=== PATIENT | female | born 1945 | race Two or more races ===

== ENCOUNTER 2024-05-23 10:05 | Emergency (ER) | payer OTHER ==
[~2024-05-23] VITALS: Ht 154.9 cm; Wt 79.4 kg
[2024-05-23] MEDS ORDERED: BENICAR40 MG (10:30)
[2024-05-23] MEDS ORDERED: METFORMIN HCL500 MG (10:30)
[2024-05-23] MEDS ORDERED: NASAL MIST126 ML (10:31)
[2024-05-23] MEDS ORDERED: SYNTHROID88 MCG (10:31)
[2024-05-23] MEDS ORDERED: KETOROLAC TROMETHAMINE 60 MG VIAL IM STA (11:26)
[2024-05-23] MEDS ORDERED: DEXAMETHASONE SODIUM PHOSPHATE 4 MG/ML VIAL IM STA (11:27)
[2024-05-23] MEDS ORDERED: OxyCODONE HCL/APAP UD (PERCOCET) PO STA (11:28)
== END 2024-05-23 14:03 | disposition home or self-care (01) ==
LOC: ER 10:08
DX: M25.561 Pain in right knee (principal); M54.2 Cervicalgia; I10 Essential (primary) hypertension
CPT/HCPCS: 73560; 96372; 99283; J1100; J1885

== ENCOUNTER 2024-07-06 08:02 | Inpatient (IN) | payer OTHER ==
[~2024-07-06] VITALS: Ht 152.4 cm; Wt 79.4 kg
[~2024-07-06 08:02] MED LIST: BENICAR40 MG; METFORMIN HCL500 MG; NASAL MIST126 ML; SYNTHROID88 MCG
[2024-07-06] MEDS ORDERED: CRESTOR40 MG (08:41)
[2024-07-06 08:46] VITALS: BP 147/87
[2024-07-06 08:46] LABS: PH,URINE 6.5 (5.0-8.0); URINE APPEARANCE Clear; URINE BILIRRUBIN Negative (NEGATIVE); URINE BLOOD Negative; URINE COLOR Yellow; URINE GLUCOSE Negative (NEGATIVE); URINE KETONE Negative (NEGATIVE); URINE LEUKOCYTE Trace; URINE NITRATE Negative; URINE PROTEIN Negative (NEGATIVE); URINE UROBILINOGEN 0.2 E.U./dl
[2024-07-06 08:50] LABS: HEMATOCRIT 42.1 % (36.0-45.00); HEMOGLOBIN 14.3 g/dL (12.0-15.00); MEAN CELL VOLUME 93.2 fL (80.00-100.00); MEAN CORPUSCULAR HEMOGLOBIN 31.6 pg (27.00-32.0); MEAN CORPUSCULAR HGB CONC 33.9 g/dl (32.0-36.0); PLATELET COUNT 192 K/uL (150-450); RED BLOOD COUNT 4.52 M/uL (4.00-6.00); RED CELL DISTRIBUTION WIDTH 13.2 % (11.5-14.5)
[2024-07-06 08:51] LABS: URINE BACTERIA 708.3 uL (0.0-1933); URINE EPITHELIAL CELLS 39.1 uL (0.0-38.8); URINE RBC 10.1 uL (0.0-20.8); URINE WBC 5.8 uL (0.0-23.2)
[2024-07-06 09:04] LABS: COVID-19 AG NEGATIVE (NEGATIVE)
[2024-07-06 09:14] LABS: PARTIAL THROMBOPLASTIN TIME 25.3 SECONDS (22.0-34.0); PROTHROMBIN TIME 10.9 SECONDS (9.0-11.5)
[2024-07-06 10:00] LABS: ALBUMIN 3.7 gm/dL (3.4-5.0); BILIRUBIN TOTAL 1.19 mg/dL (0.3-1.2); CALCIUM 9.6 mg/dL (8.5-10.1); CHOL HDL RATIO 3.5 (0-5.0); CREATININE SERUM 0.6 mg/dL (0.55-1.02); GFR 96.68; GLOBULINA 3.4 G/DL (2.4-3.5); POTASSIUM 4.13 mEq/L (3.5-5.1); TOTAL PROTEIN 7.1 gm/dL (6.4-8.2)
[2024-07-06 10:04] LABS: RH POSITIVE
[2024-07-12] MEDS ORDERED: POVIDONE-IODINE 118 ML BOTT TOP ONE (13:21)
[2024-07-12] MEDS ORDERED: VANCOMYCIN HCL 1,000 MG VIAL ONE (13:22)
[2024-07-12] MEDS ORDERED: BUPIVACAINE HCL/Mpf 0.5% 10ML VIAL ONE (13:22)
[2024-07-12] MEDS ORDERED: LIDOCAINE HCL 1%/EPINEPHRINE 20ML VIAL IJ ONE (13:22)
[2024-07-12] MEDS ORDERED: TRANEXAMIC ACID 100MG/1ML (1000MG) AMPUL IV ONE (13:22)
[2024-07-12] MEDS ORDERED: CEFAZOLIN SODIUM 1,000 MG VIAL ONE ×2 (13:57→17:24)
[2024-07-12] MEDS ORDERED: KETOROLAC TROMETHAMINE 60 MG VIAL IM ONE (15:05)
[2024-07-12] MEDS ORDERED: OxyCODONE HCL 5 MG TABLET (ROXICODONE) PO PRN (15:45)
[2024-07-12] MEDS ORDERED: MORPHINE SULFATE 4 MG/ML CARTRIDGE IV PRN (15:45)
[2024-07-12] MEDS ORDERED: ONDANSETRON HCL 2 MG/ML VIAL IV PRN (15:45)
[2024-07-12] MEDS ORDERED: SODIUM CHLORIDE 0.45 % 1,000 ML IV SCH (15:45)
[2024-07-12] MEDS ORDERED: CEFAZOLIN SODIUM 1,000 MG VIAL IV SCH (17:00)
[2024-07-12] MEDS ORDERED: GABAPENTIN 300 MG CAPSULE PO SCH (17:00)
[2024-07-12] MEDS ORDERED: MORPHINE SULFATE 4 MG/ML VIAL IV ONE ×3 (17:15→17:45)
[2024-07-12] MEDS ORDERED: ACETAMINOPHEN 500 MG GEL..CAP PO SCH (18:00)
[2024-07-12] MEDS ORDERED: DEXTROSE 50 % IN WATER 0.5 G/ML DISP.SYRIN IV PRN (21:15)
[2024-07-12] MEDS ORDERED: INSULIN LISPRO 1,000 UNIT/10 ML UNITS SUBCUTANEO PRN (21:15)
[2024-07-13 00:59] VITALS: BP 129/77; O2SAT 98
[2024-07-13] MEDS ORDERED: LEVOTHYROXINE SODIUM 88 MCG TABLET PO SCH (06:00)
[2024-07-13] MEDS ORDERED: DUI500 PO (07:18)
[2024-07-13] MEDS ORDERED: PERCOCET 5-3251 EACH PO (07:18)
[2024-07-13] MEDS ORDERED: ELIQUIS2.5 MG PO (07:18)
[2024-07-13 08:00] VITALS: BP 139/83; O2SAT 95
[2024-07-13] MEDS ORDERED: APIXABAN 2.5 MG TABLET PO SCH (09:00)
[2024-07-13] MEDS ORDERED: SENNOSIDES 1 TAB TABLET PO SCH (09:00)
[2024-07-13] MEDS ORDERED: PATIENTS OWN MEDICATION (MEDICAMENTO EN PISO) PO SCH (09:00)
[2024-07-13 10:37] LABS: HEMATOCRIT 38.5 % (36.0-45.00); MEAN CELL VOLUME 94.4 fL (80.00-100.00); MEAN CORPUSCULAR HEMOGLOBIN 31.9 pg (27.00-32.0); MEAN CORPUSCULAR HGB CONC 33.8 g/dl (32.0-36.0); PLATELET COUNT 156 K/uL (150-450); RED BLOOD COUNT 4.08 M/uL (4.00-6.00); RED CELL DISTRIBUTION WIDTH 13.4 % (11.5-14.5)
[2024-07-13 10:55] LABS: MANUAL PLATELET COUNT 168
[2024-07-13 11:54] LABS: COVID-19 AG NEGATIVE (NEGATIVE)
[2024-07-13 16:10] VITALS: BP 150/64; O2SAT 97
[2024-07-13 16:25] VITALS: BP 137/85; O2SAT 97
[2024-07-13] MEDS ORDERED: SOD FERRIC GLUC COMPLX/SUCROSE 62.5 MG/5 ML AMPUL IV SCH (17:00)
[2024-07-13] MEDS ORDERED: Cyanocobalamin/Mecobalamin 1 TAB.SL SL SCH (17:00)
[2024-07-13] MEDS ORDERED: VITAMIN B COMPLEX 1 EACH PO SCH (17:00)
[2024-07-13] MEDS ORDERED: IPRATROPIUM/ALBUTEROL SULFATE 3 ML AMPUL.NEB IH SCH (17:00)
[2024-07-14 01:24] VITALS: BP 138/74; O2SAT 98
[2024-07-14 06:32] LABS: HEMATOCRIT 33.2 % (36.0-45.00); HEMOGLOBIN 11.5 g/dL (12.0-15.00); MEAN CELL VOLUME 92.9 fL (80.00-100.00); MEAN CORPUSCULAR HEMOGLOBIN 32.1 pg (27.00-32.0); MEAN CORPUSCULAR HGB CONC 34.5 g/dl (32.0-36.0); PLATELET COUNT 148 K/uL (150-450); RED BLOOD COUNT 3.58 M/uL (4.00-6.00); RED CELL DISTRIBUTION WIDTH 13.6 % (11.5-14.5)
[2024-07-14 08:15] VITALS: BP 184/73; O2SAT 98
[2024-07-14] MEDS ORDERED: IRON FUM,PS/FOLIC ACID/VITC/B3 1 CAP CAPSULE PO SCH (09:00)
[2024-07-14 16:00] VITALS: BP 136/67; O2SAT 97
[2024-07-15] VITALS: BP 123/67; O2SAT 97
[2024-07-15 08:00] VITALS: BP 110/60; O2SAT 96
[2024-07-15] MEDS ORDERED: OxyCODONE HCL 5 MG TABLET (ROXICODONE) PO PRN (11:00)
== END 2024-07-15 13:47 | disposition home or self-care (01) | DRG 470 ==
LOC: O/R 07-12 05:20 → SURG 07-12 05:20 → SURH 07-12 08:45 → SURG 07-12 16:24 → SURH 07-12 17:00 → SURG 07-15 13:47
PROVIDERS: Internal Medicine; ADMIT Orthopaedic Surgery; ATTEND Orthopaedic Surgery
PROC: 0SUC07Z Supplement Right Knee Joint with Autologous Tissue Substitute, Open Approach (ICD-10-PCS; 2024-07-12)
PROC: 0SRC0J9 Replacement of Right Knee Joint with Synthetic Substitute, Cemented, Open Approach (ICD-10-PCS; principal; 2024-07-12 17:00)
DX: M17.11 Unilateral primary osteoarthritis, right knee (principal); D62 Acute posthemorrhagic anemia; M22.11 Recurrent subluxation of patella, right knee; I10 Essential (primary) hypertension; E03.9 Hypothyroidism, unspecified

== ENCOUNTER 2024-07-12 06:51 | Emergency (ER) | payer OTHER ==
[~2024-07-12] VITALS: Ht 157.5 cm; Wt 79.4 kg
[~2024-07-12 06:51] MED LIST changes: +CRESTOR40 MG
[2024-07-13] MEDS ORDERED: DUI500 PO (07:18)
[2024-07-13] MEDS ORDERED: PERCOCET 5-3251 EACH PO (07:18)
[2024-07-13] MEDS ORDERED: ELIQUIS2.5 MG PO (07:18)
== END 2024-07-12 08:07 | disposition home or self-care (01) ==
LOC: ER 06:51
DX: S79.821A Other specified injuries of right thigh, initial encounter (principal); W19.XXXA Unspecified fall, initial encounter; Y93.89 Activity, other specified; Y92.89 Other specified places as the place of occurrence of the external cause; Y99.8 Other external cause status; E11.9 Type 2 diabetes mellitus without complications; Z79.84 Long term (current) use of oral hypoglycemic drugs